=== PATIENT | female | born 1995 | race Caucasian/White ===

== ENCOUNTER 2017-06-18 17:36 | Emergency (ER) | payer OTHER ==
[2017-06-18 17:43] VITALS: RESP 18; TEMP 97.5
--- NOTE | 2017-06-18 18:04 | CPEKG ---
Heart Rate: 86 RR Interval: 698 P-R Interval: 164 QRSD Interval: 66 QT Interval: 368 QTC Interval: 440 P [place]: 39 QRS [place]: 68 T Wave [place]: 47 EKG Severity - NORMAL ECG - EKG Impression: SINUS RHYTHM Electronically Signed By: Arjun Holden 18-Jun-2017 18:31:46
--- NOTE | 2017-06-18 18:12 | EDPHY ---
H & P Stated Complaint: Inermittent,sharp L sided CP~7 mos;thorough neg card w/u in Nov,no pain now Time Seen by Provider: 06/18/17 18:08 HPI/ROS: CHIEF COMPLAINT: Intermittent chest pain HISTORY OF PRESENT ILLNESS: The patient presents to the ED for evaluation of ongoing intermittent chest pain. She has been experiencing the symptoms for the past 6-7 months. She describes occasional nonexertional brief sharp left- sided paroxysms of pain lasting seconds at a time. She denies any history of exertional chest pain or shortness of breath. The patient has had a number of unremarkable EKG is by her report. She did follow up with Cardiology and had a stress test which was normal as well as an echocardiogram which was normal. She apparently had been asymptomatic during the times of those evaluations. The patient reports that she notices her symptoms primarily when she is getting in the bed. She denies any history of syncope. She denies pleuritic chest pain. She denies asymmetric calf pain or swelling. The patient has not yet undergone a Holter monitor. She reports she has had 3-4 episodes today all lasting less than a second at a time. REVIEW OF SYSTEMS: A comprehensive 10 point review of systems is otherwise negative aside from elements mentioned in the history of present illness. Source: Patient Exam Limitations: No limitations - Personal History Current Tetanus Diphtheria and Acellular Pertussis (TDAP): Yes - Medical/Surgical History Other PMH: Past medical history: Hyperlipidemia - Family History Significant Family History: No pertinent family hx - Social History Smoking Status: Never smoked - Physical Exam Exam: General Appearance: Alert, no distress Eyes: Pupils equal and round no pallor or injection ENT, Mouth: Mucous membranes moist Respiratory: There are no retractions, lungs are clear to auscultation Cardiovascular: Regular rate and rhythm Gastrointestinal: Abdomen is soft and nontender, no masses, bowel sounds normal Neurological: A&O, normal motor function, normal sensory exam, normal cranial nerves Skin: Warm and dry, no rashes Musculoskeletal: Neck is supple nontender Extremities: symmetrical, full range of motion Constitutional: Initial Vital Signs Temperature (C) 36.4 C 06/18/17 17:41 Heart Rate 94 06/18/17 17:41 Respiratory Rate 18 06/18/17 17:41 Blood Pressure 129/84 H 06/18/17 17:41 O2 Sat (%) 99 06/18/17 17:41 O2 Delivery Mode Room Air Allergies/Adverse Reactions: No Known Allergies Allergy (Unverified 06/18/17 17:39) Home Medications: Medication Instructions Recorded Nuvaring 06/18/17 Medical Decision Making - Diagnostics EKG Interpretation: EKG: Complete interpretation has been separately recorded in the [facility] archive. Summary impression: Sinus rhythm, rate 86 ED Course/Re-evaluation: The patient presents to the ED with several months of ongoing brief atypical chest pain. She has had a fairly extensive workup by a recreation facilities supervisor including a negative stress test and echocardiogram. Her symptoms certainly sound suspicious possibly for PVCs. The patient was placed on a dental resident. Patient tells me she is not had her thyroid function checked. She has no evidence of an obvious arrhythmia or ischemic changes noted on her initial EKG. The patient was monitored here in the emergency department for an hour and half without recurrent symptoms. The patient's troponin is normal. At this point time I do feel she can follow up with Cardiology for consideration of a Holter monitor. I have referred her to our on-call recreation facilities supervisor. I re-evaluated the patient at 7:30 p.m. and reviewed her laboratory testing. She has no evidence of thyrotoxicosis, ischemia, or metabolic abnormality. The patient's test is negative. She is in no acute distress. No arrhythmia was noted in the emergency department. Differential Diagnosis: Differential diagnosis considered includes acute coronary syndrome, arrhythmia, thyrotoxicosis, metabolic abnormality - Data Points Laboratory Results: Laboratory Results 06/18/17 18:30 06/18/17 06/18/17 18:30 18:30 Sodium 141 mEq/L mEq/L (135-145) Potassium 3.6 mEq/L mEq/L (3.5-5.2) Chloride 104 mEq/L mEq/L (97-110) Carbon Dioxide 24 mEq/l mEq/l (22-31) Anion Gap 13 mEq/L mEq/L (8-16) BUN 7 mg/dL mg/dL (7-23) Creatinine 0.7 mg/dL mg/dL (0.6-1.0) Estimated GFR > 60 Glucose 92 mg/dL mg/dL (70-100) Calcium 9.5 mg/dL mg/dL (8.5-10.4) Troponin I < 0.012 ng/mL ng/mL (0.000-0.034) TSH 1.690 uIU/mL uIU/mL (0.465-4.680) Beta HCG, Qual NEGATIVE Departure - Departure Disposition: Home, Routine, Self-Care Clinical Impression: Chest pain Condition: Good Instructions: Chest Pain (ED) Additional Instructions: 1. The testing done in the emergency department today is within normal limits. 2. Please contact the recreation facilities supervisor you have been referred to to schedule a Holter monitor. 3. Please return to the ED for severe chest pain which is lasting more than seconds at a time, difficulty breathing or other concerns. Referrals: Opal Yuen MD [Medical Doctor] - As per Instructions
[2017-06-18 19:11] VITALS: BP 134/88; PULSE 74; O2SAT 98
== END 2017-06-18 19:39 | disposition home or self-care (01) ==
DX: R07.9 Chest pain, unspecified (principal)